=== PATIENT | male | born 1985 | race Caucasian/White ===

== ENCOUNTER 2018-04-22 01:48 | Emergency (ER) | payer BC ==
[~2018-04-22] VITALS: Ht 180.3 cm; Wt 103.0 kg
[2018-04-22 01:50] VITALS: BP 150/106
[2018-04-22] MEDS ORDERED: FLUO20CA8 PO (01:57)
[2018-04-22] MEDS ORDERED: BUSP10TA PO (01:57)
[2018-04-22] MEDS ORDERED: MUPIROCIN OINT 2%, 22GM TP SCH (02:30)
== END 2018-04-22 02:48 | disposition home or self-care (01) ==
LOC: ED 02:26
DX: L01.00 Impetigo, unspecified (principal); I10 Essential (primary) hypertension
CPT/HCPCS: 99283